=== PATIENT | female | born 1945 | race Caucasian/White ===

== ENCOUNTER 2017-01-02 12:37 | Inpatient (IN) ==
[2017-01-02] MEDS ORDERED: methylPREDNISolone 125 MG/2 ML VIAL IVP ONE (12:47)
[2017-01-02] MEDS ORDERED: Ipratropium/Albuterol Neb 3 ML IH ONE (12:47)
--- NOTE | 2017-01-02 12:50 | Emergency Department Note ---
Disposition Clinical Impression: Acute exacerbation of chronic obstructive airways disease Disposition: Admitted As Inpatient Condition: Good General Adult HPI - General Chief complaint: ED Shortness of Breath/Dyspnea Stated complaint: SOB Time Seen by Provider: 01/02/17 12:38 Source: patient, EMS Limitations: no limitations - History of Present Illness Pain Scale: 0 - Related Data Home Medications Medication Instructions Recorded Confirmed Albuterol Sulfate [Proair Hfa] 2 puff IH Q4H PRN 09/29/15 01/02/17 Alendronate Sodium [Fosamax] 35 mg PO QWEEK 09/29/15 01/02/17 Budesonide Neb [Pulmicort Neb] 0.5 mg IH DAILY 09/29/15 01/02/17 L. Acidophilus/Pectin, [place] 1 cap PO DAILY 09/29/15 01/02/17 [Acidophilus Probiotic Capsule] Multivitamin [One Daily Essential] 1 tab PO DAILY 09/29/15 01/02/17 Simvastatin [Zocor] 20 mg PO HS 09/29/15 01/02/17 Temazepam [Restoril] 15 mg PO HS 09/29/15 01/02/17 Tiotropium [Spiriva] 18 mcg IH DAILY 09/29/15 01/02/17 Aspirin Enteric Coated [Aspirin EC] 81 mg PO DAILY 01/02/17 01/02/17 Azelastine 0.1% Nasal [place] 2 spray NS BID 01/02/17 01/02/17 [Astelin] Lansoprazole [Prevacid] 30 mg PO DAILY 01/02/17 01/02/17 Allergies Allergy/AdvReac Type Severity Reaction Status Date / Time azithromycin Allergy Rash Verified 09/29/15 07:43 latex Allergy Rash Verified 09/29/15 07:43 budesonide AdvReac Itching Verified 09/29/15 07:43 [From Rhinocort Aqua] fluticasone [From Flonase] AdvReac Itching Verified 09/29/15 07:43 Past Medical History - Past Medical History Medical history: Reports: COPD, other Surgical history: Reports: herniorrhaphy, hysterectomy Psychiatric history: Reports: no psych history - Social History Smoking Status: Current every day smoker Smokeless Tobacco Status: No Alcohol use: Reports: none Drug use: Reports: none Physical Exam - General Limitations: no limitations General appearance: alert Course Vital Signs Temperature 97.9 F 01/02/17 12:38 Pulse Rate 119 01/02/17 12:38 Respiratory Rate 22 01/02/17 12:38 Blood Pressure 125/94 01/02/17 12:38 O2 Sat by Pulse Oximetry 90 01/02/17 12:38 Temperature 98.0 F 01/02/17 19:20 Pulse Rate 106 01/02/17 19:20 Respiratory Rate 15 01/02/17 21:13 Blood Pressure 107/61 01/02/17 19:20 O2 Sat by Pulse Oximetry 91 01/02/17 21:13 Oxygen Delivery Oxygen Delivery Nasal Cannula Medical Decision Making - Lab Data Result diagrams: 01/02/17 13:09 01/02/17 13:09 Lab Results 01/02/17 01/02/17 01/02/17 Range/Units 13:09 13:09 13:09 WBC 10.8 (4.3-11.1) K/mcL RBC 4.36 (3.82-4.97) M/mcL Hgb 13.3 (11.5-15.4) g/dL Hct 41.0 (35.3-44.9) % MCV 94.0 (83.0-100.0) fL MCH 30.5 (28.0-33.3) pg MCHC 32.4 (31.6-35.5) g/dL RDW 13.4 (11.5-14.5) % Plt Count 260 (140-400) K/mcL MPV 10.4 (9.4-12.4) fL Immature Gran % 0.2 (0-4) % Seg Neutrophils % 73.5 % Lymphocytes % 10.4 % Monocytes % 14.9 % Eosinophils % 0.5 % Basophils % 0.5 % Neutrophils # 8.0 (1.6-8.9) K/mcL Lymphocytes # 1.1 (0.6-4.6) K/mcL Monocytes # 1.6 H (0.0-1.3) K/mcL Eosinophils # 0.1 (0.0-0.6) K/mcL Basophils # 0.1 (0.0-0.2) K/mcL D-Dimer (0-500) ng/mLFEU Sodium 138 (136-145) mEq/L Potassium 4.4 (3.5-4.5) mEq/L Chloride 102 (98-109) mEq/L Carbon Dioxide 26 (19-29) mEq/L BUN 9 (7-20) mg/dL Creatinine 0.71 (0.57-1.11) mg/dL Est GFR ( Amer) > 60 (> 60) Est GFR (Non-Af Amer) > 60 (> 60) BUN/Creatinine Ratio 13 (6-26) Glucose 109 H (70-99) mg/dL Calculated Osmolality 285 (280-300) Lactic Acid 1.0 (0.5-2.2) mmol/L Calcium 9.3 (8.6-10.8) mg/dL Troponin I (0-0.03) ng/mL B-Natriuretic Peptide (0-100) pg/mL 01/02/17 01/02/17 01/02/17 Range/Units 13:09 13:09 13:09 WBC (4.3-11.1) K/mcL RBC (3.82-4.97) M/mcL Hgb (11.5-15.4) g/dL Hct (35.3-44.9) % MCV (83.0-100.0) fL MCH (28.0-33.3) pg MCHC (31.6-35.5) g/dL RDW (11.5-14.5) % Plt Count (140-400) K/mcL MPV (9.4-12.4) fL Immature Gran % (0-4) % Seg Neutrophils % % Lymphocytes % % Monocytes % % Eosinophils % % Basophils % % Neutrophils # (1.6-8.9) K/mcL Lymphocytes # (0.6-4.6) K/mcL Monocytes # (0.0-1.3) K/mcL Eosinophils # (0.0-0.6) K/mcL Basophils # (0.0-0.2) K/mcL D-Dimer 593 H (0-500) ng/mLFEU Sodium (136-145) mEq/L Potassium (3.5-4.5) mEq/L Chloride (98-109) mEq/L Carbon Dioxide (19-29) mEq/L BUN (7-20) mg/dL Creatinine (0.57-1.11) mg/dL Est GFR ( Amer) (> 60) Est GFR (Non-Af Amer) (> 60) BUN/Creatinine Ratio (6-26) Glucose (70-99) mg/dL Calculated Osmolality (280-300) Lactic Acid (0.5-2.2) mmol/L Calcium (8.6-10.8) mg/dL Troponin I 0.00 (0-0.03) ng/mL B-Natriuretic Peptide 27 (0-100) pg/mL Attestation Statement - Attestation Attestation: I examined this patient and my medical decision-making was reviewed with the Resident Physician. I agree with the documented findings, disposition and treatment plan as described except to the extent set forth below. [id number] time provided Patient arrives by EMS complaining of dyspnea. She is tachypneic on exam. Triage note and vital signs reviewed by me. Patient seen in conjunction by the resident physician Dr. Schmitz 14:19: Age-Adjusted d-dimer within an acceptable range
--- NOTE | 2017-01-02 13:10 | Emergency Department Note ---
Disposition Clinical Impression: Acute exacerbation of chronic obstructive airways disease Disposition: Admitted As Inpatient Condition: Good Time of Disposition: 15:18 General Adult HPI - General Chief complaint: ED Shortness of Breath/Dyspnea Stated complaint: SOB Time Seen by Provider: 01/02/17 12:38 Source: patient, EMS Limitations: no limitations Nursing Notes Reviewed: Yes Vital Signs Reviewed: Yes - History of Present Illness HPI Narrative: Mrs. Romeo, 71-year-old female, presents from her primary care physician's office for continued evaluation for dyspnea and loose bowels. 2 weeks ago, patient was on antibiotic therapy for sinusitis. She completed an antibiotic course for presented to the primary care physician today as her congestion has not improved and she has additional symptoms of worsening dyspnea not improved with her home inhalers or nebulizer as well as loose bowels. No hematochezia, no melena. Patient has chills. No change in cough. Intermittent abdominal cramping prior to bowel movements. ROS: Positive: As above Negative: Fever, nausea, vomiting, chest pains, palpitations, vertigo, weakness , numbness, tingling, dysuria Pain Scale: 0 - Related Data Home Medications Medication Instructions Recorded Confirmed Albuterol Sulfate [Proair Hfa] 2 puff IH Q4H PRN 09/29/15 09/29/15 Alendronate Sodium [Fosamax] 35 mg PO QWEEK 09/29/15 09/29/15 Budesonide Neb [Pulmicort Neb] 0.5 mg IH DAILY 09/29/15 09/29/15 Ca/D3/Mag#11/Zinc/Irrigating Pump Operator/[place] 1 tab PO DAILY 09/29/15 09/29/15 [Caltrate 600+D Plus Tablet] L. Acidophilus/Pectin, [place] 1 cap PO DAILY 09/29/15 09/29/15 [Acidophilus Probiotic Capsule] Multivitamin [One Daily Essential] 1 tab PO DAILY 09/29/15 09/29/15 Simvastatin [Zocor] 20 mg PO HS 09/29/15 09/29/15 Temazepam [Restoril] 15 mg PO HS 09/29/15 09/29/15 Tiotropium [Spiriva] 1 cap IH DAILY 09/29/15 09/29/15 Previous Rx's Medication Instructions Recorded Benzonatate [Tessalon] 200 mg PO TID PRN #30 capsule 02/21/16 GuaiFENesin ER [Mucinex] 1,200 mg PO BID #20 tbbp.12hr 02/21/16 cephALEXin [Keflex] 500 mg PO QID #40 capsule 02/21/16 Allergies Allergy/AdvReac Type Severity Reaction Status Date / Time azithromycin Allergy Rash Verified 09/29/15 07:43 latex Allergy Rash Verified 09/29/15 07:43 budesonide AdvReac Itching Verified 09/29/15 07:43 [From Rhinocort Aqua] fluticasone [From Flonase] AdvReac Itching Verified 09/29/15 07:43 All systems ED: reviewed and negative except as stated. Review of Systems: As Per HPI Past Medical History - Past Medical History Medical history: Reports: COPD, other Surgical history: Reports: herniorrhaphy, hysterectomy Psychiatric history: Reports: no psych history - Social History Smoking Status: Current every day smoker Smokeless Tobacco Status: No Alcohol use: Reports: none Drug use: Reports: none Physical Exam - General Limitations: no limitations General appearance: alert Course Course Narrative: On intake, patient is tachypneic and tachycardic; she is SIRS (+). She is nontoxic in appearance. 30 mL/kg would be 1.7 L. Will not hydrate patient with that volume she is nontoxic in appearance and does not clinically appear septic. Will gently hydrate with 500 mL bolus at this time and reassess. Continuous septic workup. Suspect potential sources could be pulmonary versus C. difficile. We will also request urinalysis. Patient does not use home oxygen at home however she is requiring 10 L to maintain saturation above 95%. Reassess after nebulizer therapy and consider BiPAP if needed. After triple dose of DuoNeb's, patient remains tachypneic and tachycardic. Will order d-dimer. At this time, most likely diagnosis is COPD exacerbation however must rule out PE. Patient's d-dimer is in the 580s. This is within normal limits of age adjusted d-dimer of 710. We will not pursue CTA or VQ scan at this time. We will admit patient for acute exacerbation of COPD. She continues to require high levels of maternal oxygen after DuoNeb therapy. I do not believe she will need BiPAP at this time. I discussed the patient with the admitting hospitalist, Dr. Lujan, who agrees to accept the patient for continued evaluation and management. Vital Signs Temperature 97.9 F 01/02/17 12:38 Pulse Rate 119 01/02/17 12:38 Respiratory Rate 22 01/02/17 12:38 Blood Pressure 125/94 01/02/17 12:38 O2 Sat by Pulse Oximetry 90 01/02/17 12:38 Temperature 97.9 F 01/02/17 12:38 Pulse Rate 126 01/02/17 14:45 Respiratory Rate 23 01/02/17 15:10 Blood Pressure 131/62 01/02/17 15:10 O2 Sat by Pulse Oximetry 93 01/02/17 14:45 Oxygen Delivery Oxygen Delivery Nasal Cannula Medical Decision Making - Lab Data Result diagrams: 01/02/17 13:09 01/02/17 13:09 Lab Results 01/02/17 01/02/17 01/02/17 Range/Units 13:09 13:09 13:09 WBC 10.8 (4.3-11.1) K/mcL RBC 4.36 (3.82-4.97) M/mcL Hgb 13.3 (11.5-15.4) g/dL Hct 41.0 (35.3-44.9) % MCV 94.0 (83.0-100.0) fL MCH 30.5 (28.0-33.3) pg MCHC 32.4 (31.6-35.5) g/dL RDW 13.4 (11.5-14.5) % Plt Count 260 (140-400) K/mcL MPV 10.4 (9.4-12.4) fL Immature Gran % 0.2 (0-4) % Seg Neutrophils % 73.5 % Lymphocytes % 10.4 % Monocytes % 14.9 % Eosinophils % 0.5 % Basophils % 0.5 % Neutrophils # 8.0 (1.6-8.9) K/mcL Lymphocytes # 1.1 (0.6-4.6) K/mcL Monocytes # 1.6 H (0.0-1.3) K/mcL Eosinophils # 0.1 (0.0-0.6) K/mcL Basophils # 0.1 (0.0-0.2) K/mcL D-Dimer (0-500) ng/mLFEU Sodium 138 (136-145) mEq/L Potassium 4.4 (3.5-4.5) mEq/L Chloride 102 (98-109) mEq/L Carbon Dioxide 26 (19-29) mEq/L BUN 9 (7-20) mg/dL Creatinine 0.71 (0.57-1.11) mg/dL Est GFR ( Amer) > 60 (> 60) Est GFR (Non-Af Amer) > 60 (> 60) BUN/Creatinine Ratio 13 (6-26) Glucose 109 H (70-99) mg/dL Calculated Osmolality 285 (280-300) Lactic Acid 1.0 (0.5-2.2) mmol/L Calcium 9.3 (8.6-10.8) mg/dL Troponin I (0-0.03) ng/mL B-Natriuretic Peptide (0-100) pg/mL 01/02/17 01/02/17 01/02/17 Range/Units 13:09 13:09 13:09 WBC (4.3-11.1) K/mcL RBC (3.82-4.97) M/mcL Hgb (11.5-15.4) g/dL Hct (35.3-44.9) % MCV (83.0-100.0) fL MCH (28.0-33.3) pg MCHC (31.6-35.5) g/dL RDW (11.5-14.5) % Plt Count (140-400) K/mcL MPV (9.4-12.4) fL Immature Gran % (0-4) % Seg Neutrophils % % Lymphocytes % % Monocytes % % Eosinophils % % Basophils % % Neutrophils # (1.6-8.9) K/mcL Lymphocytes # (0.6-4.6) K/mcL Monocytes # (0.0-1.3) K/mcL Eosinophils # (0.0-0.6) K/mcL Basophils # (0.0-0.2) K/mcL D-Dimer 593 H (0-500) ng/mLFEU Sodium (136-145) mEq/L Potassium (3.5-4.5) mEq/L Chloride (98-109) mEq/L Carbon Dioxide (19-29) mEq/L BUN (7-20) mg/dL Creatinine (0.57-1.11) mg/dL Est GFR ( Amer) (> 60) Est GFR (Non-Af Amer) (> 60) BUN/Creatinine Ratio (6-26) Glucose (70-99) mg/dL Calculated Osmolality (280-300) Lactic Acid (0.5-2.2) mmol/L Calcium (8.6-10.8) mg/dL Troponin I 0.00 (0-0.03) ng/mL B-Natriuretic Peptide 27 (0-100) pg/mL - EKG Data EKG #1 EKG attestation: Yes I reviewed and interpreted this EKG. EKG results narrative: EKG dated December at 12:57 interpreted as sinus tachycardia with a rate of 119. Normal intervals. 141, QRS 79, QT/QTc to 96/367. Normal axis. Nonspecific ST-T changes. Compared to previous dated 12/04/2003 showing notes ischemic changes comparison.
[2017-01-02] MEDS ORDERED: 0.9 % Sodium Chloride 500 ML IVC ONE (13:15)
[2017-01-02 13:22] LABS: Basophils # 0.1 K/mcL (0.0-0.2); Basophils % 0.5 %; Eosinophils # 0.1 K/mcL (0.0-0.6); Eosinophils % 0.5 %; Hemoglobin 13.3 g/dL (11.5-15.4); Immature Granulocytes % 0.2 % (0-4); Lymphocytes # 1.1 K/mcL (0.6-4.6); Lymphocytes % 10.4 %; Mean Corpuscular HGB Conc 32.4 g/dL (31.6-35.5); Mean Corpuscular Hemoglobin 30.5 pg (28.0-33.3); Mean Platelet Volume 10.4 fL (9.4-12.4); Monocytes # 1.6 K/mcL (0.0-1.3); Monocytes % 14.9 %; Platelet Count 260 K/mcL (140-400); Red Blood Count 4.36 M/mcL (3.82-4.97); Red Cell Distribution Width 13.4 % (11.5-14.5); Segmented Neutrophils % 73.5 %
[2017-01-02 13:35] LABS: BUN/Creatinine Ratio 13 (6-26); Blood Urea Nitrogen 9 mg/dL (7-20); Calcium 9.3 mg/dL (8.6-10.8); Carbon Dioxide 26 mEq/L (19-29); Chloride 102 mEq/L (98-109); Glucose 109 mg/dL (70-99); Osmolality,Calculated 285 (280-300); Potassium 4.4 mEq/L (3.5-4.5); Sodium 138 mEq/L (136-145); eGFR For African Americans > 60 (> 60); eGFR For Non-African Americans > 60 (> 60)
[2017-01-02] MEDS ORDERED: Levofloxacin 500 MG/100 ML 500 MG/100 ML BAG IVPB ONE (14:35)
--- NOTE | 2017-01-02 15:53 | Electrocardiograph Report ---
[address] [address] Test Date: 2017-01-02 Pat Name: Kirti Romeo Department: 104 Room: 2NE17 Gender: F Pumpman: : 1945 Requested By: Alexander Schmitz Order Number: [id number] Reading MD: Bryant Smith MD Measurements Intervals [place] Rate: 119 P: 73 NM: 141 QRS: 44 QRSD: 79 T: 67 QT: 296 QTc: 367 Interpretive Statements SINUS TACHYCARDIA BASELINE ARTIFACT Electronically Signed On 01-02-2017 15:51:54 EST by Bryant Smith MD
[2017-01-02] MEDS ORDERED: *HR* HYDROcodone/Acet 5/325 mg TABLET PO PRN (16:25)
[2017-01-02] MEDS ORDERED: Naloxone 0.4 MG/ML INJ IVP PRN (16:25)
[2017-01-02] MEDS ORDERED: Ondansetron 4 MG/2 ML VIAL IVP PRN (16:25)
[2017-01-02] MEDS ORDERED: Acetaminophen 325 MG TABLET PO PRN (16:25)
[2017-01-02] MEDS ORDERED: NON-FORMULARY MEDICATION 1 EACH EACH (Alendronate Sodium [Fosamax] 35 MG) PO SCH (16:45)
[2017-01-02] MEDS: predniSONE 20 MG TABLET PO SCH (18:01)
[2017-01-02] MEDS: Ipratropium/Albuterol Neb 3 ML IH SCH (21:10)
[2017-01-02] MEDS: Azelastine 0.1% Nasal Spray 30 ML BOTTLE NS SCH (21:38)
[2017-01-02] MEDS: Benzonatate 100 MG CAPSULE PO PRN (21:38)
[2017-01-02] MEDS: Temazepam 15 MG CAPSULE PO SCH (22:49)
--- NOTE | 2017-01-02 23:57 | Event Note ---
Date of Encounter: 01/02/17 Time of Encounter: 18:00 I have personally performed a face to face evaluation on this patient on . I have reviewed and agree with the care plan. History and Exam by me shows: Ms. Romeo is admitted with COPD exacerbation and hypoxia. She is somewhat improved at this time. Exam Alert. Pleasant Heart distant Scant wheeze bilaterally Abd soft Agree with assessment and plan as outlined in H&P
--- NOTE | 2017-01-03 00:06 | Internal Med History&Physical ---
Date of Encounter: 01/03/17 Time of Encounter: 15:00 Assessment and Plan (1) Acute exacerbation of chronic obstructive airways disease Current visit: Yes Status: Acute Acute exacerbation of COPD. prednisone 40 mg by mouth daily. Tessalon 200 mg 3 times a day for cough. DuoNebs every 6 scheduled. Will continue patient's inhalers and Spiriva. IVPB Levaquin 750 mg daily for infection coverage. Supplemental O2 with titration and SPO2 monitoring. Patient at high risk for further morbidity and respiratory distress based on current COPD exacerbation, hx, and risk factors. Inpatient. (2) Dizziness Current visit: Yes Status: Acute Acute dizziness r/t current acute exacerbation of COPD and hypoxia. Supplemental O2 w/titration and SpO2 monitoring. Falls/safety precautions. PT/ OT consults to assess for ambulation stability. (3) HLD (hyperlipidemia) Current visit: Yes Status: Chronic Hx of chronic HLD. Lipid panel in a.m. labs. Continue simvastatin. Qualifiers: Hyperlipidemia type: pure hypercholesterolemia Qualified Code(s): E78.00 - Pure hypercholesterolemia, unspecified; E78.0 - Pure hypercholesterolemia (4) DVT prophylaxis Current visit: Yes Status: Acute Heparin 5,000 units SQ Q8 for DVT prophylaxis. Internal Medicine - H&P: HPI Chief complaint: SOB/Dyspnea Admitted From: Emergency Dept Plans for Post Hospital Care: Home History of present illness: Ms. Romeo is a 71 year old female with history of COPD presents from the ED with chief complaint of shortness of breath, dizziness, and dyspnea for the past 3-4 days. Patient also reports she has had a cough for approximately 1 month which produces yellowish-brown sputum. She also states she has lost 26 pounds in 6 months without trying because nothing tastes good to her. Patient' s family reported she was placed on antibiotics for sinus infection recently and now reports diarrhea. Patient reports she is a current smoker smoking one third pack per day. Patient denies fever, chills, nausea, vomiting, changes in vision, headache, chest pain, palpitations, unusual bleeding, numbness, tingling , pre-syncope, or syncope. Past Med Surg Social Fam HX - Past Medical History Source: patient, old records reviewed, obtained from family Medical history: COPD, other Psychiatric history: no psych history - Past Surgical History Surgical History: herniorrhaphy, hysterectomy - Social History Smoking Status: Current every day smoker Packs per day: 1/3 PPD Smokeless Tobacco Status: No Alcohol use: none Drug use: none Current living situation: Home, With Family Activity Level: Independent ambulation Recent Out of Country Travel Within the Last 8 Weeks: No Exposure or Possible Exposure to Illness During Travel: No - Family History Father Race: Family Member Ethnicity: Non- Living Status: Age at : 71 Cause of : CAD Hx Family Cardiac Disorders: Yes (CAD, atherosclerosis) Mother Race: Family Member Ethnicity: Non- Living Status: Age at : 72 Cause of : CAD Hx Family Cardiac Disorders: Yes (CAD) Brother Race: Family Member Ethnicity: Non- Living Status: Still Living Hx Family Cardiac Disorders: Yes (Aneurysm, Open heart surgery) Sister Race: Family Member Ethnicity: Non- Living Status: Age at : 26 Cause of : GA Hx Family Cardiac Disorders: Yes (GA) Hx Family Genitourinary Disorders: Yes (Renal failure) Internal Medicine - H&P: Meds Albuterol Sulfate [Proair Hfa] 2 puff IH Q4H PRN 09/29/15 [History] Alendronate Sodium [Fosamax] 35 mg PO QWEEK 09/29/15 [History] Budesonide Neb [Pulmicort Neb] 0.5 mg IH DAILY 09/29/15 [History] L. Acidophilus/Pectin, [place] [Acidophilus Probiotic Capsule] 1 cap PO DAILY 01/03 [History] Multivitamin [One Daily Essential] 1 tab PO DAILY 09/29/15 [History] Simvastatin [Zocor] 20 mg PO HS 09/29/15 [History] Temazepam [Restoril] 15 mg PO HS 09/29/15 [History] Tiotropium [Spiriva] 18 mcg IH DAILY 09/29/15 [History] Aspirin Enteric Coated [Aspirin EC] 81 mg PO DAILY 01/02/17 [History] Azelastine 0.1% Nasal [place] [Astelin] 2 spray NS BID 01/02/17 [History] Lansoprazole [Prevacid] 30 mg PO DAILY 01/02/17 [History] 3 Allergy/AdvReac Type Severity Reaction Status Date / Time azithromycin Allergy Rash Verified 09/29/15 07:43 latex Allergy Rash Verified 09/29/15 07:43 budesonide AdvReac Itching Verified 09/29/15 07:43 [From Rhinocort Aqua] fluticasone [From Flonase] AdvReac Itching Verified 09/29/15 07:43 All Systems PM: A 10-system review of systems was performed and is negative for pertinent findings except as documented above in the HPI. - Constitutional Constitutional: no chills, no fever(s), no night sweats - EENT Eyes: no change in vision, no discharge, no pain, no photophobia Ears: no ear discharge, no ear pain, no tinnitus Nose, mouth and throat: no dysphagia, no nasal discharge, no neck pain, no sore throat - Breasts Breasts: as per HPI - Cardiovascular Cardiovascular ROS IM: as per HPI, dyspnea, dyspnea on exertion, no chest pain, no diaphoresis, no lightheadedness, no palpitations, no syncope - Respiratory Respiratory: as per HPI, cough, dyspnea, dyspnea on exertion, change in phlegm color - Gastrointestinal Gastrointestinal: no abdominal pain, no diarrhea, no hematemesis, no hematochezia, no melena, no nausea, no vomiting - Genitourinary Genitourinary: no change in urinary stream, no dysuria, no flank pain, no hematuria Menstruation: as per HPI, post hysterectomy - Musculoskeletal Musculoskeletal ROS IM: no numbness, no tingling - Integumentary Integumentary IM: no rash, no unusual bruising - Neurological Neurological ROS: no confusion, no convulsions, no focal weakness, no numbness, no tingling, no tremor(s) - Psychiatric Psychiatric: as per HPI - Endocrine Endocrine IM: as per HPI - Hematologic/Lymphatic Hematologic/Lymphatic: no easy bruising - Allergic/Immunologic Allergic/Immunologic: as per HPI - Constitutional Vitals: Temp Pulse Resp BP Pulse Ox 98.9 F 106 17 117/65 94 01/02/17 23:31 01/02/17 23:31 01/02/17 23:31 01/02/17 23:31 01/02/17 23:31 General appearance: Present: cooperative, mild distress, A&O X 3, pleasant, loss of weight, answers questions appropriately - Head Head exam: Present: atraumatic, normal inspection, normocephalic - Eye Eye exam: Present: PERRL, conjuntiva pink, sclera anicteric Pupils: Present: PERRL - ENT ENT exam: Present: normal exam, normal external ear exam - Neck Neck exam general surgery: Present: normal inspection, supple, trachea midline. Absent: lymphadenopathy - Respiratory Respiratory exam: Present: accessory muscle use, decreased breath sounds. Absent: rales, rhonchi, wheezes - Cardiovascular Cardiovascular exam: Present: tachycardia - GI/Abdominal GI/Abdominal exam: Present: normal bowel sounds, soft, no peritoneal signs. Absent: distended, tenderness - Rectal Rectal exam: Present: deferred - Additional comments: exam deferred. - Extremities Exam Extremities exam: Present: warm, radial pulses palpable and symmetrical. Absent : calf tenderness, cyanotic, pedal edema - Back Exam Back exam: Present: normal inspection - Neurological Exam Neurological exam: Present: CN II-XII intact, oriented X3, no focal deficits. Absent: pronater drift, facial droop, speech deficit - Psychiatric Psychiatric exam: Present: normal affect, normal mood Internal Med - H&P Results - Labs CBC & Chem 7: 01/02/17 13:09 01/02/17 13:09 - EKG Data EKG shows normal: sinus rhythm Rate: tachycardia - EKG Data Prior EKG available for review: yes EKG comments: 01/03/17 00:12 EKG dated 12/04/03 shows sinus rhythm with possible old anterior infarction. Abnormal ECG. EKG dated 01/02/17 shows sinus tachycardia with possible right ventricular conduction delay. Abnormal rhythm ECG.
[2017-01-03] MEDS: Ipratropium/Albuterol Neb 3 ML IH SCH ×2 (04:06→10:41)
[2017-01-03 04:12] LABS: Basophils % 0.1 %; Hematocrit 37.4 % (35.3-44.9); Hemoglobin 12.1 g/dL (11.5-15.4); Immature Granulocytes % 0.5 % (0-4); Lymphocytes # 0.7 K/mcL (0.6-4.6); Mean Corpuscular HGB Conc 32.4 g/dL (31.6-35.5); Mean Corpuscular Hemoglobin 30.7 pg (28.0-33.3); Mean Corpuscular Volume 94.9 fL (83.0-100.0); Mean Platelet Volume 10.9 fL (9.4-12.4); Monocytes # 0.5 K/mcL (0.0-1.3); Monocytes % 5.7 %; Neutrophils # 6.7 K/mcL (1.6-8.9); Platelet Count 264 K/mcL (140-400); Red Blood Count 3.94 M/mcL (3.82-4.97); Red Cell Distribution Width 13.2 % (11.5-14.5); Segmented Neutrophils % 84.7 %
[2017-01-03 04:23] LABS: Hemoglobin A1C 5.4 %
[2017-01-03 04:27] LABS: Alanine Aminotransferase 8 Units/L (0-55); Albumin 2.6 g/dL (3.5-5.0); Albumin/Globulin Ratio 0.7 (1.1-2.2); Alkaline Phosphatase 59 Units/L (38-126); Aspartate Amino Transferase 10 Units/L (5-34); BUN/Creatinine Ratio 13 (6-26); Bilirubin,Total 0.5 mg/dL (0.2-1.2); Blood Urea Nitrogen 8 mg/dL (7-20); Calcium 8.9 mg/dL (8.6-10.8); Carbon Dioxide 25 mEq/L (19-29); Chloride 104 mEq/L (98-109); Chol/HDL Ratio 3.1 (0-4.9); Cholesterol 130 mg/dL (< 200); Glucose 162 mg/dL (70-99); HDL Cholesterol 42 mg/dL (40-59); LDL Cholesterol,Calculated 77 mg/dL (0-99); Magnesium 2.1 mg/dL (1.6-2.6); Osmolality,Calculated 284 (280-300); Sodium 136 mEq/L (136-145); Total Protein 6.6 g/dL (6.0-8.3); Triglycerides 56 mg/dL (< 150); eGFR For African Americans > 60 (> 60); eGFR For Non-African Americans > 60 (> 60)
[2017-01-03] MEDS: *HR* Heparin 5,000 UNIT/ML VIAL SQ SCH ×3 (06:38→23:29)
--- NOTE | 2017-01-03 07:21 | Internal Med Progress Note ---
<Tristan Easley - Last Filed: 01/03/17 11:03> Date of Encounter: 01/03/17 Time of Encounter: 07:21 - Assessment and plan (1) Acute exacerbation of chronic obstructive airways disease Current Visit: Yes Status: Acute Assessment and plan: Acute exacerbation of COPD. Solumedrol IV 40 mg daily. Tessalon 200 mg 3 times a day for cough. DuoNebs switched to Xopenox due to tachycardia Will continue patient's inhalers and Spiriva. IVPB Levaquin 750 mg daily for infection coverage. Supplemental O2 with titration and SPO2 monitoring. P Patient at high risk for further morbidity and respiratory distress based on current COPD exacerbation, hx, and risk factors (2) Failure of outpatient treatment Current Visit: Yes Status: Acute Assessment and plan: She reports completing course of an antibiotic Cefdinir? BID for 10 days (3) Weight loss, unintentional Current Visit: Yes Status: Acute Assessment and plan: She has lost 26 pounds in 6 months without trying because nothing tastes good to her CT chest shows no acute pulmonary abnormality Last colonoscopy normal 7 years ago Dope Sprayer consulted Continue dietary supplement (4) HLD (hyperlipidemia) Current Visit: Yes Status: Chronic Assessment and plan: Continue statin Qualifiers: Hyperlipidemia type: pure hypercholesterolemia Qualified Code(s): E78.00 - Pure hypercholesterolemia, unspecified; E78.0 - Pure hypercholesterolemia (5) DVT prophylaxis Current Visit: Yes Status: Acute Assessment and plan: Heparin subq TID - Subjective Interval history: Patient seen and examined with family at bedside. She reports SOB has improved and expresses desire to stop smoking. Family is at bedside and all questions were answered. - Constitutional Vitals: Temp Pulse Resp BP Pulse Ox 98 F 99 17 94/75 95 01/03/17 06:58 01/03/17 06:58 01/03/17 06:58 01/03/17 06:58 01/03/17 06:58 General appearance: Present: cooperative, mild distress, A&O X 3, pleasant, loss of weight, answers questions appropriately - Head Head exam: Present: atraumatic, normocephalic - Eye Eye exam: Present: PERRL, conjuntiva pink, sclera anicteric Pupils: Present: PERRL - ENT ENT exam: Present: mucous membranes moist, normal oropharynx - Neck Neck exam general surgery: Present: supple, trachea midline. Absent: lymphadenopathy - Respiratory Respiratory exam: Present: CTAB. Absent: accessory muscle use, rales, rhonchi, wheezes Additional comments: barrel chest - Cardiovascular Cardiovascular exam: Present: +S1, +S2, tachycardia. Absent: diastolic murmur, gallop, rubs, systolic murmur - GI/Abdominal GI/Abdominal exam: Present: normal bowel sounds, soft, no peritoneal signs. Absent: distended, tenderness - Additional comments: no colvin - Extremities Exam Extremities exam: Present: warm, radial pulses palpable and symmetrical. Absent : calf tenderness, cyanotic, pedal edema - Back Exam Back exam: Present: normal inspection. Absent: paraspinal tenderness, tenderness - Neurological Exam Neurological exam: Present: CN II-XII intact, oriented X3, no focal deficits. Absent: pronater drift, facial droop, speech deficit - Psychiatric Psychiatric exam: Present: normal affect, normal mood - Skin Skin exam: Present: dry, intact, warm Internal Medicine: Result - Labs CBC & Chem 7: 01/03/17 03:32 01/03/17 03:32 Labs: Short CBC 01/03/17 Range/Units 03:32 WBC 7.9 (4.3-11.1) K/mcL Hgb 12.1 (11.5-15.4) g/dL Hct 37.4 (35.3-44.9) % Plt Count 264 (140-400) K/mcL Neutrophils # 6.7 (1.6-8.9) K/mcL BMP 01/03/17 03:32 Sodium 136 Potassium 5.0 H Chloride 104 Carbon Dioxide 25 BUN 8 Creatinine 0.64 Glucose 162 H Calcium 8.9 Liver Function 01/03/17 Range/Units 03:32 Total Bilirubin 0.5 (0.2-1.2) mg/dL AST 10 (5-34) Units/L ALT 8 (0-55) Units/L Alkaline Phosphatase 59 (38-126) Units/L Albumin 2.6 L (3.5-5.0) g/dL - ABG Interpretation ABG results: PT/INR, D-dimer D-Dimer 593 ng/mLFEU (0-500) H 01/02/17 13:09 - Pulse Oximetry Interpretation Digit-Finger Pulse Oximetry Readin (on 4L O2 via NC) Actions taken: other (decreased O2 flow to 2L/min) - Impressions Impressions Chest CTA 01/03/17 00:02 IMPRESSION: No evidence of pulmonary embolism or acute pulmonary abnormality. D/ / Tung Falcon MD / Tung Falcon MD Interpreting Provider: Tung Falcon MD Consult Discharge Plan - Plan Referrals: Ras Gamble MD [Primary Care Provider] - <Laureano Adrian H - Last Filed: 01/03/17 11:14> Date of Encounter: 01/03/17 - Constitutional Vitals: Temp Pulse Resp BP Pulse Ox 98.6 F 102 17 94/75 93 01/03/17 10:29 01/03/17 10:29 01/03/17 10:29 01/03/17 06:58 01/03/17 10:29 Internal Medicine: Result - Labs CBC & Chem 7: 01/03/17 03:32 01/03/17 03:32 Labs: Short CBC 01/03/17 Range/Units 03:32 WBC 7.9 (4.3-11.1) K/mcL Hgb 12.1 (11.5-15.4) g/dL Hct 37.4 (35.3-44.9) % Plt Count 264 (140-400) K/mcL Neutrophils # 6.7 (1.6-8.9) K/mcL BMP 01/03/17 03:32 Sodium 136 Potassium 5.0 H Chloride 104 Carbon Dioxide 25 BUN 8 Creatinine 0.64 Glucose 162 H Calcium 8.9 Liver Function 01/03/17 Range/Units 03:32 Total Bilirubin 0.5 (0.2-1.2) mg/dL AST 10 (5-34) Units/L ALT 8 (0-55) Units/L Alkaline Phosphatase 59 (38-126) Units/L Albumin 2.6 L (3.5-5.0) g/dL - ABG Interpretation ABG results: PT/INR, D-dimer D-Dimer 593 ng/mLFEU (0-500) H 01/02/17 13:09 - Impressions Impressions Chest CTA 01/03/17 00:02 IMPRESSION: No evidence of pulmonary embolism or acute pulmonary abnormality. D/ / Tung Falcon MD / Tung Falcon MD Interpreting Provider: Tung Falcon MD - Attending Attestation Requiring oxygen Acute hypoxic respiratory failure secondary to acute COPD exacerbation from acute bacterial bronchitis Failed outpatient therapy with possible Cefdnir ( not sure) Continue Levaquin, Solu-Medrol, Xopenex May discharge in the morning if stable I examined this patient and my medical decision-making was reviewed with the Resident Physician. I agree with the documented findings, disposition and treatment plan as described except to the extent set forth below.
[2017-01-03] MEDS: predniSONE 20 MG TABLET PO SCH (08:57)
[2017-01-03] MEDS: Aspirin Enteric Coated 81 MG Tablet PO SCH (08:58)
[2017-01-03] MEDS: Lactobacillus 1 EACH CAP.SPRINK PO SCH (08:58)
[2017-01-03] MEDS: Multivit/Ca/Min/Fe/FA 1 TAB TABLET PO SCH (08:58)
[2017-01-03] MEDS: Levofloxacin 750 MG/150 ML 750 MG/150 ML BAG IVPB SCH (08:59)
[2017-01-03] MEDS: Azelastine 0.1% Nasal Spray 30 ML BOTTLE NS SCH ×2 (09:06→20:27)
[2017-01-03] MEDS: Tiotropium 18 MCG inhalation IH SCH (10:35)
[2017-01-03] MEDS: Budesonide Neb 0.5 MG/2 ML IH SCH (10:41)
[2017-01-03 11:32] LABS: Thyroid Stimulating Hormone 0.413 mcIU/mL (0.350-4.840)
[2017-01-03] MEDS: Nicotine 14 MG PATCH.TD24 TD SCH (13:49)
[2017-01-03] MEDS: MethylPREDNISolone 40 MG/ML VIAL IVP SCH (14:00)
[2017-01-03] MEDS: Ipratropium Neb 0.5 MG NEBULIZER IH SCH ×2 (16:09→22:09)
[2017-01-03] MEDS: Levalbuterol Neb 1.25 MG/3 ML IH SCH ×2 (16:09→22:09)
[2017-01-03] MEDS: Benzonatate 100 MG CAPSULE PO PRN (20:27)
[2017-01-03] MEDS: Temazepam 15 MG CAPSULE PO SCH (23:26)
[2017-01-04] MEDS: Ipratropium Neb 0.5 MG NEBULIZER IH SCH ×4 (03:32→16:30)
[2017-01-04] MEDS: Levalbuterol Neb 1.25 MG/3 ML IH SCH ×4 (03:32→16:31)
[2017-01-04] MEDS: *HR* Heparin 5,000 UNIT/ML VIAL SQ SCH (05:36)
[2017-01-04 05:43] LABS: Basophils % 0.2 %; Hematocrit 36.5 % (35.3-44.9); Hemoglobin 11.7 g/dL (11.5-15.4); Immature Granulocytes % 1.4 % (0-4); Lymphocytes # 1.1 K/mcL (0.6-4.6); Lymphocytes % 10.3 %; Mean Corpuscular HGB Conc 32.1 g/dL (31.6-35.5); Mean Corpuscular Hemoglobin 30.3 pg (28.0-33.3); Mean Corpuscular Volume 94.6 fL (83.0-100.0); Mean Platelet Volume 10.7 fL (9.4-12.4); Monocytes # 1.1 K/mcL (0.0-1.3); Monocytes % 10.3 %; Neutrophils # 8.5 K/mcL (1.6-8.9); Platelet Count 314 K/mcL (140-400); Red Blood Count 3.86 M/mcL (3.82-4.97); Red Cell Distribution Width 13.5 % (11.5-14.5); Segmented Neutrophils % 77.8 %
[2017-01-04 06:24] LABS: Alanine Aminotransferase 11 Units/L (0-55); Albumin 2.5 g/dL (3.5-5.0); Albumin/Globulin Ratio 0.7 (1.1-2.2); Alkaline Phosphatase 65 Units/L (38-126); Aspartate Amino Transferase 15 Units/L (5-34); BUN/Creatinine Ratio 25 (6-26); Bilirubin,Total 0.2 mg/dL (0.2-1.2); Blood Urea Nitrogen 16 mg/dL (7-20); Calcium 8.9 mg/dL (8.6-10.8); Carbon Dioxide 25 mEq/L (19-29); Chloride 105 mEq/L (98-109); Globulin 3.8 g/dL (2.4-3.5); Glucose 139 mg/dL (70-99); Osmolality,Calculated 287 (280-300); Potassium 4.9 mEq/L (3.5-4.5); Sodium 137 mEq/L (136-145); Total Protein 6.3 g/dL (6.0-8.3); eGFR For African Americans > 60 (> 60); eGFR For Non-African Americans > 60 (> 60)
--- NOTE | 2017-01-04 07:05 | Discharge Summary ---
<Tristan Easley - Last Filed: 01/04/17 10:29> Date of Encounter: 01/04/17 Time of Encounter: 07:05 - Discharge Diagnosis (1) Acute exacerbation of chronic obstructive airways disease Priority: Primary Status: Acute Comments: Acute exacerbation of COPD. Solumedrol IV 40 mg daily. Switch to Prednisone taper on discharge Tessalon 200 mg 3 times a day for cough. DuoNebs switched to Xopenox due to tachycardia Will continue patient's inhalers and Spiriva. IVPB Levaquin 750 mg daily for infection coverage. Supplemental O2 with titration and SPO2 monitoring. Patient at high risk for further morbidity and respiratory distress based on current COPD exacerbation, hx, and risk factors (2) Acute respiratory failure with hypoxia Priority: Primary Status: Acute Comments: Acute hypoxic respiratory failure secondary to acute COPD exacerbation from acute bacterial bronchitis (3) Failure of outpatient treatment Priority: Primary Status: Acute Comments: She reports completing course of an antibiotic Cefdinir? BID for 10 days (4) Weight loss, unintentional Priority: Secondary Status: Chronic Comments: She has lost 26 pounds in 6 months without trying because nothing tastes good to her CT chest shows no acute pulmonary abnormality Last colonoscopy normal 7 years ago Marketing Sales Representative consulted Continue dietary supplement (5) HLD (hyperlipidemia) Priority: Secondary Status: Chronic Comments: Continue statin Qualifiers: Hyperlipidemia type: pure hypercholesterolemia Qualified Code(s): E78.00 - Pure hypercholesterolemia, unspecified; E78.0 - Pure hypercholesterolemia (6) Tobacco abuse Priority: Secondary Status: Chronic Comments: Tobacco cessation discussed Nicotine patch ordered (7) DVT prophylaxis Priority: Primary Status: Acute Comments: Heparin subq TID - Discharge Medications Prescriptions: Benzonatate [Tessalon] 200 mg PO TID PRN #30 capsule PRN Reason: Cough GuaiFENesin ER [Mucinex] 600 mg PO BID #20 tbbp.12hr Levofloxacin [Levaquin] 750 mg PO DAILY #5 tablet predniSONE [PredniSONE] See Taper PO DAILY #15 tablet Home Medications: Albuterol Sulfate [Proair Hfa] 2 puff IH Q4H PRN 09/29/15 [History] Alendronate Sodium [Fosamax] 35 mg PO QWEEK 09/29/15 [History] Budesonide Neb [Pulmicort Neb] 0.5 mg IH DAILY 09/29/15 [History] L. Acidophilus/Pectin, [place] [Acidophilus Probiotic Capsule] 1 cap PO DAILY 01/03 [History] Multivitamin [One Daily Essential] 1 tab PO DAILY 09/29/15 [History] Simvastatin [Zocor] 20 mg PO HS 09/29/15 [History] Temazepam [Restoril] 15 mg PO HS 09/29/15 [History] Tiotropium [Spiriva] 18 mcg IH DAILY 09/29/15 [History] Aspirin Enteric Coated [Aspirin EC] 81 mg PO DAILY 01/02/17 [History] Azelastine 0.1% Nasal [place] [Astelin] 2 spray NS BID 01/02/17 [History] Lansoprazole [Prevacid] 30 mg PO DAILY 01/02/17 [History] Acetaminophen [Tylenol] 650 mg PO Q6HR PRN tablet 01/04/17 [Rx] Benzonatate [Tessalon] 200 mg PO TID PRN #30 capsule 01/04/17 [Rx] GuaiFENesin ER [Mucinex] 600 mg PO BID #20 tbbp.12hr 01/04/17 [Rx] Levofloxacin [Levaquin] 750 mg PO DAILY #5 tablet 01/04/17 [Rx] predniSONE [PredniSONE] See Taper PO DAILY #15 tablet 01/04/17 [Rx] Allergies/Adverse Reactions: 3 Allergy/AdvReac Type Severity Reaction Status Date / Time azithromycin Allergy Rash Verified 09/29/15 07:43 latex Allergy Rash Verified 09/29/15 07:43 budesonide AdvReac Itching Verified 09/29/15 07:43 [From Rhinocort Aqua] fluticasone [From Flonase] AdvReac Itching Verified 09/29/15 07:43 Procedures/tests Complete & Pending: Procedures Performed prior 72 hours Category Date Time Status CTA chest [CT angio chest] [CT] Stat Cat Scan 01/03/17 00:02 Completed Date of admission: 01/02/17 18:38 Primary care physician: Ras Gamble MD Discharging clinician: Tristan Easley Anticipated date of discharge: 01/04/17 - Patient Status Disposition: Home, Self-Care Condition: Good Functional capacity at discharge: independent ambulation Overall status at discharge: patient is progressing back to baseline - Discharge Instructions Instructions: Benzonatate (By mouth), Prednisone (By mouth), Guaifenesin (By mouth), Levofloxacin (By mouth), Chronic Obstructive Pulmonary Disease (DC), Cigarette Smoking and Your Health, Drug Room Operator (GEN) Follow Up With: Ras Gamble MD [Primary Care Provider] - Additional Instructions: Continue Prednisone taper 40mg for 3 days, 30mg for 3 days, 20mg for 3 days, and 10mg for 3 days Continue Lavaquin PO to complete a 7 day course of treatment Continue Mucinex and Tessalon perles Follow up with PCP in 1-2 weeks - Diet and Activity Activity: as per physical therapy, resume usual activities as tolerated Diet: other (Ensure or Boost with regular diet TID) Hospital course: Ms. Romeo is a 71 year old female with history of COPD presents from the ED with chief complaint of shortness of breath, dizziness, and dyspnea for the past 3-4 days. Patient also reports she has had a cough for approximately 1 month which produces yellowish-brown sputum. Failed outpatient therapy, she was placed on antibiotics, possibly Cefdnir (not sure), for sinus infection. She also states she has lost 26 pounds in 6 months without trying because nothing tastes good to her. Patient reports she is a current smoker smoking one third pack per day. Patient found to have acute hypoxic respiratory failure secondary to acute COPD exacerbation from acute bacterial bronchitis. She continued to improve with IV Levaquin, Solu-Medrol, and DuoNebs were switched to Xopenox due to tachycardia. Patient instructed to continue Prednisone taper 40mg for 3 days , 30mg for 3 days, 20mg for 3 days, and 10mg for 3 days. Continue Lavaquin PO to complete a 7 day course of treatment. Continue Mucinex and Tessalon perles. Follow up with PCP in 1-2 weeks - Time Spent with Patient Total time spent providing and/or coordinating discharge services: - Constitutional Vitals: Temp Pulse Resp BP Pulse Ox 97.8 F 87 18 108/62 97 01/04/17 04:53 01/04/17 04:53 01/04/17 04:53 01/04/17 04:53 01/04/17 04:53 General appearance: Present: cooperative, mild distress, A&O X 3, pleasant, loss of weight, answers questions appropriately Exam: - Head Head exam: Present: atraumatic, normocephalic - Eye Eye exam: Present: PERRL, conjuntiva pink, sclera anicteric Pupils: Present: PERRL - ENT ENT exam: Present: mucous membranes moist, normal oropharynx - Neck Neck exam general surgery: Present: supple, trachea midline. Absent: lymphadenopathy - Respiratory Respiratory exam: Present: CTAB. Absent: accessory muscle use, rales, rhonchi, wheezes Additional comments: barrel chest - Cardiovascular Cardiovascular exam: Present: RRR, +S1, +S2. Absent: diastolic murmur, gallop, rubs, systolic murmur - GI/Abdominal GI/Abdominal exam: Present: normal bowel sounds, soft, no peritoneal signs. Absent: distended, tenderness - Additional comments: no colvin - Extremities Exam Extremities exam: Present: warm, radial pulses palpable and symmetrical. Absent : calf tenderness, cyanotic, pedal edema - Back Exam Back exam: Present: normal inspection. Absent: paraspinal tenderness, tenderness - Neurological Exam Neurological exam: Present: CN II-XII intact, oriented X3, no focal deficits. Absent: pronater drift, facial droop, speech deficit - Psychiatric Psychiatric exam: Present: normal affect, normal mood - Skin Skin exam: Present: dry, intact, warm <Laureano Adrian H - Last Filed: 01/04/17 12:53> Date of Encounter: 01/04/17 Procedures/tests Complete & Pending: Procedures Performed prior 72 hours Category Date Time Status CTA chest [CT angio chest] [CT] Stat Cat Scan 01/03/17 00:02 Completed Date of admission: 01/02/17 18:38 Primary care physician: Ras Gamble MD Hospital course: Ms. Romeo is a 71 year old female - Time Spent with Patient Total time spent providing and/or coordinating discharge services: - Constitutional Vitals: Temp Pulse Resp BP Pulse Ox 98.3 F 92 16 102/54 94 01/04/17 07:19 01/04/17 07:19 01/04/17 07:19 01/04/17 07:19 01/04/17 07:19 - Attending Attestation Acute hypoxic respiratory failure secondary to acute COPD exacerbation from acute bacterial bronchitis Failed outpatient therapy with possible Cefdnir ( not sure) Continue Levaquin, penicillin taper, Xopenex Time spent in this discharge: 40 minutes I examined this patient and my medical decision-making was reviewed with the Resident Physician. I agree with the documented findings, disposition and treatment plan as described except to the extent set forth below.
[2017-01-04 07:21] VITALS: BP 102/54
[2017-01-04] MEDS: Lactobacillus 1 EACH CAP.SPRINK PO SCH (10:30)
[2017-01-04] MEDS: MethylPREDNISolone 40 MG/ML VIAL IVP SCH (10:30)
[2017-01-04] MEDS: Nicotine 14 MG PATCH.TD24 TD SCH (10:31)
[2017-01-04] MEDS: Levofloxacin 750 MG/150 ML 750 MG/150 ML BAG IVPB SCH (10:31)
[2017-01-04] MEDS: Tiotropium 18 MCG inhalation IH SCH (11:13)
[2017-01-04] MEDS: Budesonide Neb 0.5 MG/2 ML IH SCH (11:13)
[2017-01-04] MEDS: Aspirin Enteric Coated 81 MG Tablet PO SCH (11:45)
[2017-01-04] MEDS: Azelastine 0.1% Nasal Spray 30 ML BOTTLE NS SCH (11:45)
[2017-01-04] MEDS: Multivit/Ca/Min/Fe/FA 1 TAB TABLET PO SCH (11:46)
== END 2017-01-04 16:30 | disposition home or self-care (01) | DRG 190 ==
LOC: EMEROO 12:37 → 2NENU 12:37
PROVIDERS: ADMIT Internal Medicine; ATTEND Internal Medicine